=== PATIENT | female | born 1990 | race Caucasian/White ===

== ENCOUNTER 2018-10-06 18:45 | Emergency (ER) | payer BC ==
[~2018-10-06] VITALS: Ht 160 cm; Wt 69.9 kg
[2018-10-06 19:07] LABS: BASO # 0.1 10*3/uL (0.0-0.1); BASO % 0.5 % (0.0-1.0); EOS # 0.2 10*3/uL (0.0-0.4); EOS % 1.6 % (1.0-4.0); HEMATOCRIT 41.6 % (37.0-47.0); HEMOGLOBIN 13.5 g/dl (12.0-16.0); LYMPH # 3.3 10*3/uL (1.3-4.4); LYMPH % 34.6 % (27.0-41.0); MEAN CELL VOLUME 93.3 fl (81.0-99.0); MEAN CORPUSCULAR HGB 30.3 pg (27.0-31.0); MEAN CORPUSCULAR HGB CONC 32.5 g/dl (33.0-37.0); MEAN PLATELET VOLUME 8.9 fl (9.6-12.3); MONO # 0.7 10*3/uL (0.1-1.0); MONO % 7.2 % (3.0-9.0); NEUT # 5.3 10*3/uL (2.3-7.9); PLATELET COUNT AUTOMATED 350 10*3/uL (130-400); RED BLOOD COUNT 4.46 10*6/uL (4.10-5.10); RED CELL DISTRI WIDTH 13.4 % (0-14.5); WHITE BLOOD COUNT 9.4 10*3/uL (4.8-10.8)
[2018-10-06 19:13] LABS: BILIRUBIN NEGATIVE (NEGATIVE); BLOOD NEGATIVE (NEGATIVE); CLARITY CLEAR (CLEAR); COLOR YELLOW (YELLOW); GLUCOSE NEGATIVE (NEGATIVE); KETONE NEGATIVE (NEGATIVE); LEUKO ESTERASE NEGATIVE (NEGATIVE); NITRITE NEGATIVE (NEGATIVE); PH 6.5 (5.0-9.0); UROBILINOGEN 0.2 E.U./dl (0.2-1.0)
[2018-10-06 19:19] LABS: BACTERIA 3+; MUCOUS 2+
[2018-10-06 19:29] LABS: ALBUMIN 3.7 gm/dl (3.1-4.5); ALKALINE PHOSPHATASE 54 U/L (45-117); BUN 12 mg/dl (7-24); CHLORIDE 108 mmol/L (98-107); CREATININE 0.74 mg/dL (0.55-1.02); LIPASE 175 U/L (73-393); POTASSIUM 3.6 mmol/L (3.5-5.1); SGOT/AST 6 IU/L (3-35); SGPT/ALT 14 U/L (12-78); SODIUM 142 mmol/L (136-145); TOTAL PROTEIN 7.9 gm/dL (6.4-8.2)
== END 2018-10-06 21:41 | disposition home or self-care (01) ==
LOC: ED 18:45
PROVIDERS: Nurse Practitioner Family
DX: R10.9 Unspecified abdominal pain (principal); Z87.442 Personal history of urinary calculi; Z88.6 Allergy status to analgesic agent; Z98.51 Tubal ligation status

== ENCOUNTER 2019-02-08 22:12 | Emergency (ER) | payer BC ==
[~2019-02-08] VITALS: Wt 70.3 kg
== END 2019-02-08 23:58 | disposition home or self-care (01) ==
LOC: ED 22:12
DX: S60.211A Contusion of right wrist, initial encounter (principal); E03.9 Hypothyroidism, unspecified; Z88.6 Allergy status to analgesic agent; Z88.5 Allergy status to narcotic agent; W23.0XXA Caught, crushed, jammed, or pinched between moving objects, initial encounter; Y93.89 Activity, other specified; Y92.89 Other specified places as the place of occurrence of the external cause; Y99.9 Unspecified external cause status

== ENCOUNTER 2019-07-26 11:38 | Emergency (ER) | payer BC ==
[~2019-07-26] VITALS: Wt 72.6 kg
[2019-07-26 12:02] LABS: BASO % 0.6 % (0.0-1.0); EOS # 0.1 10*3/uL (0.0-0.4); HEMATOCRIT 36.1 % (37.0-47.0); HEMOGLOBIN 12.1 g/dl (12.0-16.0); LYMPH # 0.9 10*3/uL (1.3-4.4); LYMPH % 12.7 % (27.0-41.0); MEAN CELL VOLUME 91.6 fl (81.0-99.0); MEAN CORPUSCULAR HGB 30.7 pg (27.0-31.0); MEAN CORPUSCULAR HGB CONC 33.5 g/dl (33.0-37.0); MEAN PLATELET VOLUME 9.2 fl (9.6-12.3); MONO # 0.4 10*3/uL (0.1-1.0); MONO % 5.3 % (3.0-9.0); NEUT # 5.5 10*3/uL (2.3-7.9); NEUT % 80.1 % (47.0-73.0); PLATELET COUNT AUTOMATED 247 10*3/uL (130-400); RED BLOOD COUNT 3.94 10*6/uL (4.10-5.10); RED CELL DISTRI WIDTH 12.9 % (0-14.5); WHITE BLOOD COUNT 6.9 10*3/uL (4.8-10.8)
[2019-07-26 12:12] LABS: ACT PARTIAL THROMBO TIME 24.8 SECONDS (20.0-32.1); INTERNATIONAL NORM RATIO 0.9 (2.0-3.5)
[2019-07-26 12:19] LABS: ALBUMIN 3.6 gm/dl (3.1-4.5); ALKALINE PHOSPHATASE 43 U/L (45-117); BUN 10 mg/dl (7-24); CHLORIDE 109 mmol/L (98-107); CREATININE 0.89 mg/dL (0.55-1.02); POTASSIUM 3.5 mmol/L (3.5-5.1); SGOT/AST 10 IU/L (3-35); SGPT/ALT 19 U/L (12-78); SODIUM 141 mmol/L (136-145); TOTAL PROTEIN 7.3 gm/dL (6.4-8.2)
[2019-07-26 12:21] LABS: TROPONIN I < 0.015 ng/ml (<0.045)
[2019-07-26] MEDS ORDERED: TAMIFLU 75MG CA75 MG PO (13:10)
[2019-07-26] MEDS ORDERED: ZOFRAN4 MG PO (13:25)
== END 2019-07-26 13:40 | disposition home or self-care (01) ==
LOC: ED 11:38
PROVIDERS: Emergency Medicine
DX: J10.1 Influenza due to other identified influenza virus with other respiratory manifestations (principal); R11.2 Nausea with vomiting, unspecified; R42 Dizziness and giddiness; K21.9 Gastro-esophageal reflux disease without esophagitis; E78.2 Mixed hyperlipidemia; E03.9 Hypothyroidism, unspecified; Z88.6 Allergy status to analgesic agent; Z91.048 Other nonmedicinal substance allergy status

== ENCOUNTER → 2024-09-02 | Outpatient (CLI) | payer OTHER ==
[~2024-09-02] MED LIST: TAMIFLU 75MG CA75 MG PO; ZOFRAN4 MG PO
== END | disposition home or self-care (01) ==
LOC: US 08:25
PROVIDERS: ATTEND Nurse Practitioner Primary Care
DX: N63.13 Unspecified lump in the right breast, lower outer quadrant (principal); N63.23 Unspecified lump in the left breast, lower outer quadrant

== ENCOUNTER 2025-01-28 16:27 | Emergency (ER) | payer MEDICAID ==
[~2025-01-28] VITALS: Wt 63.5 kg
[2025-01-28] MEDS ORDERED: IBUPROFEN 800 MG TAB PO ONE (16:50)
[2025-01-28] MEDS ORDERED: MELOXICAM15 MG PO (17:14)
== END 2025-01-28 17:18 | disposition home or self-care (01) ==
LOC: ED 16:27
DX: S43.401A Unspecified sprain of right shoulder joint, initial encounter (principal); E03.9 Hypothyroidism, unspecified; K21.9 Gastro-esophageal reflux disease without esophagitis; Z79.899 Other long term (current) drug therapy; Z88.5 Allergy status to narcotic agent; Z88.6 Allergy status to analgesic agent; Z98.890 Other specified postprocedural states; W18.39XA Other fall on same level, initial encounter; Y93.89 Activity, other specified; Y92.89 Other specified places as the place of occurrence of the external cause; Y99.8 Other external cause status

== ENCOUNTER → 2025-03-07 | Outpatient (CLI) | payer MEDICAID ==
[~2025-03-07] MED LIST changes: +MELOXICAM15 MG PO
[2025-03-07 12:10] LABS: BUN 10 mg/dl (9-23)
== END | disposition home or self-care (01) ==
LOC: LAB 11:00
PROVIDERS: ATTEND Nurse Practitioner Primary Care
DX: R53.83 Other fatigue (principal); Z79.899 Other long term (current) drug therapy

== ENCOUNTER 2025-04-08 22:23 | Emergency (ER) | payer MEDICAID ==
[~2025-04-08] VITALS: Ht 160 cm; Wt 61.7 kg
[2025-04-08] MEDS ORDERED: Albuterol Sulf/Ipratropium 3 ML VIAL NEB ONE (22:55)
[2025-04-08 23:09] LABS: BASO # 0.1 10*3/uL (0.0-0.1); BASO % 0.7 % (0.0-1.0); EOS # 0.1 10*3/uL (0.0-0.4); EOS % 1.7 % (1.0-4.0); MEAN CELL VOLUME 89.0 fl (81.0-99.0); MEAN CORPUSCULAR HGB 30.3 pg (27.0-31.0); MEAN PLATELET VOLUME 8.7 fl (9.6-12.3); MONO # 0.6 10*3/uL (0.1-1.0); MONO % 7.6 % (3.0-9.0); NEUT # 3.5 10*3/uL (2.3-7.9); NEUT % 46.3 % (47.0-73.0); NUCLEATED RED BLOOD CELL 0.0 % (0.0-0.0); NUCLEATED RED BLOOD CELL 0.0 10*3/uL (0.0-0.0); PLATELET COUNT AUTOMATED 323 10*3/uL (130-400); RED CELL DISTRI WIDTH 12.3 % (0-14.5)
[2025-04-08 23:23] LABS: BUN 10 mg/dl (9-23)
[2025-04-09] MEDS ORDERED: CELECOXIB100 M1 PO (00:49)
[2025-04-09] MEDS ORDERED: THEREMS MULTI400 MCG PO (00:50)
[2025-04-09] MEDS ORDERED: PREDNISONE50 MG PO (00:52)
[2025-04-09] MEDS ORDERED: VENT7GM INH (00:52)
== END 2025-04-09 01:00 | disposition home or self-care (01) ==
LOC: ED 22:23
PROVIDERS: Nurse Practitioner Family
DX: F45.8 Other somatoform disorders (principal); Z79.899 Other long term (current) drug therapy; Z88.5 Allergy status to narcotic agent; Z88.8 Allergy status to other drugs, medicaments and biological substances